=== PATIENT | female | born 1985 | race Caucasian/White ===

== ENCOUNTER 2017-01-06 17:00 | Inpatient (IN) | payer BC ==
--- NOTE | 2017-01-06 18:01 | HP ---
Past Medical History - Admission Chief Complaint: Here for labor induction History of Present Illness: 31 y/o with SIUP at 40 weeks gestation here for labor induction due to A1GDM. Pt reports +FM, no VB/LOF/CTx today. Possibly lost her mucus plug yesterday. Was transfer of care at 27 weeks gestation. GBS negative, HIV negative. HepBSag negative. Otherwise uncomplicated care. 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 Weeks Gestation by Dates: 40.0 Infectious Disease: No: AIDS, HIV, MRSA Psych: No: Bipolar, Depression Endocrine: Yes: Diabetes Mellitus (gestational - A1) - Past Surgical History Past Surgical History: Yes: None Hx Myomectomy: No Hx Transabdominal Cerclage: No - Smoking History Smoking history: Never smoked Have you smoked in the past 12 months: No - Alcohol/Substance Use History of Substance Use: reports: None - Social History Usual Living Arrangement: Yes: With Spouse ADL: Independent History of Recent Travel: No Review of Systems - Review of Systems Constitutional: reports: No Symptoms Eyes: reports: No Symptoms HENT: reports: No Symptoms Neck: reports: No Symptoms Cardiovascular: reports: No Symptoms Respiratory: reports: No Symptoms Gastrointestinal: reports: No Symptoms Genitourinary: reports: No Symptoms Breasts: reports: No Symptoms Reported Musculoskeletal: reports: No Symptoms Integumentary: reports: No Symptoms Neurological: reports: No Symptoms Endocrine: reports: No Symptoms Hematology/Lymphatic: reports: No Symptoms Psychiatric: reports: No Symptoms Physical Exam - Maternity Constitutional: Yes: Well Nourished, No Distress, Calm Eyes: Yes: Conjunctiva Clear, EOM Intact HENT: Yes: Atraumatic, Normocephalic Neck: Yes: Supple, Trachea Midline Cardiovascular: Yes: WNL Lungs: Clear to auscultation Breast(s): Yes: WNL - Abdominal Exam/OB Fundal Height: 40 Number of Fetuses: Single Presentation: Vertex Contractions: Yes Regularity: Irregular Intensity: Unaware Heart Rate (range): 135 Category: I Accelerations: Uniform Decelerations: None - Vaginal Exam/OB Vaginal Bleediing: No Dilatation (cm): 1 Effacement (%): 50 Amniotic Membrane Status: Intact Presentation: Vertex/Position Station: -3 - Physical Exam Musculoskeletal: Yes: WNL Extremities: Yes: WNL Integumentary: Yes: WNL Psychiatric: Yes: Alert, Oriented Hemorrhage Risk Assessment - Risk Factors Medium Risk Factors: Yes: None High Risk Factors: Yes: None Risk Score: 1 Risk Level: Medium Risk Problem List - Problems (1) Term Code(s): Z34.80 - ENCOUNTER FOR SUPRVSN OF NORMAL , UNSP TRIMESTER (2) Gestational diabetes mellitus (GDM) affecting first Code(s): O24.419 - GESTATIONAL DIABETES MELLITUS IN , UNSP CONTROL Assessment/Plan 31 y/o with SIUP at 40 weeks here for labor induction due to A1GDM - AFVSS - FHTS cat 1 - labor induction, cervidil placed, to remove at 6 am and start pitocin - GBS negative
[2017-01-06] MEDS ORDERED: PROMETHAZINE HCL 25 MG/1 ML VIAL IVPUSH ONE (18:02)
[2017-01-06] MEDS ORDERED: BUTORPHANOL TARTRATE 1 MG/ML VIAL IVPB ONE (18:02)
[2017-01-06 18:09] VITALS: BMI 29.2
[2017-01-06] MEDS ORDERED: ALBUTEROL SO4 6.7 GM HFA INHALER IH PRN (18:43)
[2017-01-06 19:26] LABS: BASOPHIL 0.1 % (0-2.0); EOSINOPHIL 0.6 % (0-4.5); MCH 30.2 pg (25.7-33.7); MCHC 33.7 g/dl (32.0-36.0); MEAN CELL VOLUME 89.5 fl (80-96); MEAN PLT VOLUME 9.3 fl (7.5-11.1); NEUTROPHILS 67.6 % (42.8-82.8); PLATELET COUNT 196 K/MM3 (134-434); RDW 13.9 % (11.6-15.6); WHITE BLOOD COUNT 9.6 K/mm3 (4.0-10.0)
[2017-01-06 19:47] LABS: CALCIUM 8.6 mg/dL (8.5-10.1); COCKROFT - GAULT 93.3895
[2017-01-06 19:57] LABS: INR 0.94 (0.82-1.09); PROTHROMBIN TIME (PATIENT) 10.3 SEC (9.98-11.88)
[2017-01-06 20:00] LABS: ACTIVATED PTT 28.2 SECONDS (26.9-34.4)
[2017-01-07] MEDS ORDERED: ELECTROLYTE-148 SOLN 1,000 ML IV SCH (06:00)
[2017-01-07] MEDS ORDERED: OXYTOCIN 15 UNITS/ LR 250 ML 250 ML IVPB SCH (06:30)
[2017-01-07] MEDS: OXYTOCIN 20 UNITS in 0.9% NS 1,000 ML IV SCH ×2 (07:00→09:53)
[2017-01-07] MEDS: ACETAMINOPHEN 325 MG TABLET (FP) PO PRN ×4 (07:25→19:40)
[2017-01-07] MEDS: oxyCODONE HCL 5 MG TABLET PO PRN ×3 (07:25→19:41)
--- NOTE | 2017-01-07 07:28 | PN ---
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 Infant Gender: Male Position: Left, OA - 1 Minute Total Score: 9 5 Minutes Total Score: 9 - [place] Feeding Plan Initial Plan: Exclusive throughout hospitalization Remarks - Remarks Remarks: Uncomplicated of baby boy from [facility] position anterior shoulder (right) delivered with ease along with remainder of 3VC noted, clamped and cut placenta delivered spontaneously and in tact 2nd degree laceration, right sulcal and right labial lacerations repaired with 2 -0 vicryl and chromic without difficulty mom stable baby stable and to well baby nursery EBL 350cc sponge and needle count correct after delivery
[2017-01-07] MEDS ORDERED: BENZOCAINE 28 GM HEMORRHOIDAL OINTMENT TP PRN (07:35)
[2017-01-07] MEDS ORDERED: BISACODYL 10 MG SUPP.RECT RC PRN (07:35)
[2017-01-07] MEDS ORDERED: WITCH HAZEL 50% (TUCKS) 40 PAD/JAR PAD TP PRN (07:35)
[2017-01-07] MEDS ORDERED: BENZOCAINE 20% 57 GM BOTTLE TP PRN (07:35)
[2017-01-07] MEDS ORDERED: METHYLERGONOVINE MALEATE 0.2 MG/1 ML AMP IM PRN (07:35)
[2017-01-07] MEDS ORDERED: FERROUS SO4 325 MG TABLET (FP) PO SCH (08:00)
[2017-01-07] MEDS: PRENATAL VITAMINS W/ FOLIC ACID TABLET (FP) PO SCH (12:38)
[2017-01-08] MEDS: ACETAMINOPHEN 325 MG TABLET (FP) PO PRN (02:02)
[2017-01-08] MEDS: oxyCODONE HCL 5 MG TABLET PO PRN ×4 (02:03→21:32)
--- NOTE | 2017-01-08 08:35 | PN ---
Progress Note, Physician Chief Complaint: she offers no complaints s/p section and blood transfusion condition stable History of Present Illness: day #1 s/p section - Current Medication List Current Medications: Active Medications Acetaminophen (Tylenol -) 650 mg PO Q3H PRN PRN Reason: PAIN Last Admin: 01/08/17 02:02 Dose: 650 mg Albuterol Sulfate (Ventolin Hfa Inhaler -) 2 puff IH Q4H PRN PRN Reason: ASTHMA Benzocaine (Americaine Ointment -) 1 applic TP PRN PRN PRN Reason: PAIN Benzocaine (Americaine 20% [place] -) 1 spray TP PRN PRN PRN Reason: PAIN Bisacodyl (Dulcolax Suppository -) 10 mg RC PRN PRN PRN Reason: CONSTIPATION Diphtheria/Tetanus/Acell Pertussis (Boostrix -) 0.5 ml IM .ONCE ONE Stop: 01/08/17 10:01 Ibuprofen (Motrin -) 600 mg PO Q4H PRN PRN Reason: PAIN Methylergonovine Maleate (Methergine Injection -) 0.2 mg IM Q4H PRN PRN Reason: EXCESSIVE BLEEDING (L&D) Oxycodone HCl (Roxicodone -) 5 mg PO Q6H PRN PRN Reason: PAIN Last Admin: 01/08/17 02:03 Dose: 5 mg Multivit/Folic Acid/Iron ( Vitamins (Sjr) -) 1 tab PO DAILY EMY Last Admin: 01/07/17 12:38 Dose: 1 tab Senna/Docusate Sodium (Pericolace -) 2 tablet PO HS PRN PRN Reason: CONSTIPATION Witch Jenna/Glycerin (Tucks Pads -) 1 pad TP PRN PRN PRN Reason: PAIN - Objective Vital Signs: Vital Signs Temperature 98.0 F 01/08/17 06:00 Pulse Rate 78 01/08/17 06:00 Respiratory Rate 20 01/08/17 06:00 Blood Pressure 108/71 01/08/17 06:00 O2 Sat by Pulse Oximetry (%) 97 01/07/17 08:30 Constitutional: Yes: Well Nourished, No Distress, Calm Eyes: Yes: WNL HENT: Yes: WNL Neck: Yes: WNL Cardiovascular: Yes: Regular Rate and Rhythm Respiratory: Yes: Regular Gastrointestinal: Yes: WNL, Normal Bowel Sounds ...Rectal Exam: Yes: Deferred Genitourinary: Yes: WNL Breast(s): Yes: WNL Musculoskeletal: Yes: WNL Extremities: Yes: WNL Edema: No Peripheral Pulses WNL: Yes Integumentary: Yes: WNL Wound/Incision: Yes: Dressing Dry and Intact Neurological: Yes: Alert, Oriented ...Motor Strength: WNL Psychiatric: Yes: Alert, Oriented Labs: CBC, BMP 01/06/17 19:10 01/06/17 19:10 INR, PTT INR 0.94 (0.82-1.09) 01/06/17 19:10 Assessment/Plan s/p day31 CONDITION STABLE PLAN TO ADVANCE CARE AND ACTIVITIESSITZ BATH IS ADVISED
[2017-01-08] MEDS: IBUPROFEN 600 MG TABLET (FP) PO PRN ×3 (08:40→21:31)
[2017-01-08 08:44] LABS: BASOPHIL 0.1 % (0-2.0); EOSINOPHIL 0.8 % (0-4.5); MCH 30.3 pg (25.7-33.7); MCHC 33.6 g/dl (32.0-36.0); MEAN CELL VOLUME 90.2 fl (80-96); NEUTROPHILS 68.4 % (42.8-82.8); PLATELET COUNT 150 K/MM3 (134-434); RDW 13.8 % (11.6-15.6); WHITE BLOOD COUNT 12.4 K/mm3 (4.0-10.0)
[2017-01-08] MEDS: PRENATAL VITAMINS W/ FOLIC ACID TABLET (FP) PO SCH (10:10)
[2017-01-08] MEDS ORDERED: SENNOSIDES/DOCUSATE COMBO (SENNA PLUS) TABLET (UD) PO PRN (22:00)
[2017-01-09] MEDS: IBUPROFEN 600 MG TABLET (FP) PO PRN ×2 (03:42→11:25)
[2017-01-09] MEDS: oxyCODONE HCL 5 MG TABLET PO PRN ×2 (03:43→11:26)
--- NOTE | 2017-01-09 08:41 | DS ---
Physical Exam-TUTORING ASSISTANT Vital Signs: Vital Signs Temperature 98.8 F 01/08/17 22:34 Pulse Rate 86 01/08/17 22:34 Respiratory Rate 18 01/08/17 22:34 Blood Pressure 112/74 01/08/17 22:34 O2 Sat by Pulse Oximetry (%) 97 01/07/17 08:30 Constitutional: Yes: Well Nourished Eyes: Yes: WNL HENT: Yes: WNL Neck: Yes: Supple, Trachea Midline Cardiovascular: Yes: Regular Rate and Rhythm Respiratory: Yes: Regular, CTA Bilaterally External Genitalia: Yes: Normal Vaginal Exam: Yes: Normal Cervix: Yes: Normal Uterus: Yes: Firm ....Post : Yes: Uterus firm, Moderate lochia rubra Breast(s): Yes: Other (No engorgement) Integumentary: Yes: WNL Neurological: Yes: Alert, Oriented ...Motor Strength: WNL Psychiatric: Yes: Alert, Oriented Labs: CBC, BMP 01/08/17 07:35 01/06/17 19:10 Delivery - Delivery Vaginal Delivery: No Problems Type of Anesthesia: Local Episiotomy/Laceration: 2nd degree EBL (cc): 350 Delivery, Single - Stages of Labor Date 1st Stage Initiatied: 01/07/17 Time 1st Stage Initiated: 03:00 Date 2nd Stage Initiated: 01/07/17 Time 2nd Stage Initiated: 06:15 Date of Delivery: 01/07/17 Time of Delivery: 06:44 Time Placenta Delivered: 06:49 Placenta: Yes: Spontaneous - Condition of Assistant Professor Of Business/Boom Tender Present: [place]a: AzulAndres ortega Infant Gender: Male Weight: 7 lb 12 oz Position: Left, OA Total Hours ROM (Hrs/Mins): 19mins - 1 Minute Total Score: 9 5 Minutes Total Score: 9 - Feeding Plan Initial Plan: Exclusive throughout hospitalization Discharge Summary Reason For Visit: INDUCTION OF LABOR Current Active Problems Gestational diabetes mellitus (GDM) affecting first (Acute) Term (Acute) Procedures: Principal: Normal spontaneous vaginal delivery Hospital Course: Routine care Condition: Good - Instructions Diet, Activity, Other Instructions: Regular diet No douching, no sexual intercourse x 6 weeks. Disposition: HOME - Home Medications Comprehensive Discharge Medication List: Ambulatory Orders Albuterol Sulfate Inhaler - [Ventolin Hfa Inhaler -] 2 inh PO Q4H PRN 01/06/17 Pnv95/Ferrous Fumarate/FA [ Vitamin Tablet] 1 each PO DAILY 01/06/17
[2017-01-09 09:43] VITALS: BP 108/77; PULSE 79; TEMP 98.7
[2017-01-09] MEDS ORDERED: DIPHTH,PERTUSS(ACELL),TET 0.5 ML DISP.SYRIN IM ONE (10:00)
[2017-01-09] MEDS: PRENATAL VITAMINS W/ FOLIC ACID TABLET (FP) PO SCH (10:00)
== END 2017-01-09 16:01 | disposition home or self-care (01) | DRG 775 ==
LOC: JLDR 17:00 → J3W 01-07 09:29
PROVIDERS: ADMIT Obstetrics & Gynecology; ATTEND Obstetrics & Gynecology
PROC: 10E0XZZ Delivery of Products of Conception, External Approach (ICD-10-PCS; principal; 2017-01-07)
PROC: 0KQM0ZZ Repair Perineum Muscle, Open Approach (ICD-10-PCS; 2017-01-07)
PROC: 0W8NXZZ Division of Female Perineum, External Approach (ICD-10-PCS; 2017-01-07)
DX: O70.1 Second degree perineal laceration during delivery (principal); Z37.0 Single live birth; O24.429 Gestational diabetes mellitus in childbirth, unspecified control; Z3A.40 40 weeks gestation of pregnancy
CPT/HCPCS: 36415; 59409; 80048; 85025; 85610; 85730; 86593; 86850; 86900; 86901; 90715

== ENCOUNTER 2020-12-09 07:45 | Inpatient (IN) | payer OTHER ==
[2020-12-09 09:20] LABS: INR 0.89 (0.83-1.09); PROTHROMBIN TIME (PATIENT) 10.8 SEC (9.7-13.0)
[2020-12-09 09:22] LABS: ACTIVATED PTT 28.1 SECONDS (25.2-36.5)
[2020-12-09 09:27] LABS: CALCIUM 8.9 mg/dL (8.5-10.1)
[2020-12-09 09:28] LABS: BLOOD UREA NITROGEN 9.4 mg/dL (7-18)
[2020-12-09 09:31] LABS: CREATININE 0.6 mg/dL (0.55-1.3)
[2020-12-09 09:34] LABS: HEMOGLOBIN 13.6 GM/dL (10.7-15.3); MEAN PLT VOLUME 8.7 fl (7.5-11.1); PLATELET COUNT 218 K/MM3 (134-434); WHITE BLOOD COUNT 9.8 K/mm3 (4.0-10.0)
[2020-12-09 09:45] LABS: BASO % 0.1 % (0-2.0); EOS % 0.7 % (0-4.5); HEMATOCRIT 39.2 % (32.4-45.2); LYMPH % 24.4 % (8-40); MCH 30.6 pg (25.7-33.7); MCHC 34.6 g/dl (32.0-36.0); MEAN CELL VOLUME 88.4 fl (80-96); NEUT % 66.8 % (42.8-82.8); RBC 4.44 M/mm3 (3.60-5.2); RDW 13.9 % (11.6-15.6)
[2020-12-09 09:58] VITALS: BMI 27.8
[2020-12-09] MEDS ORDERED: PROMETHAZINE HCL 25 MG/1 ML VIAL IVPUSH ONE (10:38)
[2020-12-09] MEDS ORDERED: BUTORPHANOL TARTRATE 2 MG/ML VIAL IVPB PRN (10:38)
[2020-12-09] MEDS ORDERED: ELECTROLYTE-148 SOLN 1,000 ML IV SCH (10:45)
[2020-12-09] MEDS ORDERED: DINOPROSTONE 10 MG VAGINAL SUPPOSITORY VG ONE (11:03)
[2020-12-09] MEDS ORDERED: PROMETHAZINE HCL 25 MG/1 ML VIAL ONE (14:04)
[2020-12-09] MEDS ORDERED: BUTORPHANOL TARTRATE 2 MG/ML VIAL ONE (14:04)
[2020-12-09] MEDS ORDERED: OXYTOCIN 20 UNITS in 0.9% NS 20 UNIT/1,000 ML INFUS.BAG IV ONE (15:40)
[2020-12-09] MEDS ORDERED: LIDOCAINE HCL 1% PRESERVATIVE FREE - 30ML VIAL ONE (15:40)
[2020-12-09] MEDS ORDERED: BENZOCAINE 28 GM HEMORRHOIDAL OINTMENT PR PRN (16:17)
[2020-12-09] MEDS ORDERED: BENZOCAINE 20% 57 GM BOTTLE TP PRN (16:17)
[2020-12-09] MEDS ORDERED: BISACODYL 10 MG SUPP.RECT PR PRN (16:17)
[2020-12-09] MEDS ORDERED: METHYLERGONOVINE MALEATE 0.2 MG/1 ML AMP IM PRN (16:17)
[2020-12-09] MEDS ORDERED: WITCH HAZEL 50% (TUCKS) 40 PAD/JAR PAD TP PRN (16:17)
[2020-12-09] MEDS ORDERED: OXYTOCIN 20 UNITS in 0.9% NS 20 UNIT/1,000 ML INFUS.BAG IV SCH (17:00)
[2020-12-09] MEDS: IBUPROFEN 600 MG TABLET (FP) PO PRN (17:00)
[2020-12-09] MEDS ORDERED: IBUPROFEN 600 MG TABLET (FP) PO ONE (17:08)
[2020-12-09 17:26] LABS: CORD BASE EXCESS -3.9 mmol/L (0-2); CORD HCO3 22.9 mmHg (20-29); CORD pH 7.296 (7.14-7.44)
[2020-12-09 17:28] LABS: CORD HCO3 21.7 mmHg (20-29); CORD PCO2 41.8 mmHg (30-78); CORD pH 7.333 (7.14-7.44)
[2020-12-09] MEDS: ACETAMINOPHEN 325 MG TABLET (FP) PO PRN (20:11)
[2020-12-10] MEDS: IBUPROFEN 600 MG TABLET (FP) PO PRN ×4 (03:11→18:26)
[2020-12-10] MEDS: ACETAMINOPHEN 325 MG TABLET (FP) PO PRN ×4 (03:12→18:26)
[2020-12-10 08:01] LABS: BASO % 0.1 % (0-2.0); EOS % 0.6 % (0-4.5); HEMATOCRIT 38.3 % (32.4-45.2); HEMOGLOBIN 12.7 GM/dL (10.7-15.3); LYMPH % 15.7 % (8-40); MCH 29.9 pg (25.7-33.7); MCHC 33.2 g/dl (32.0-36.0); MEAN PLT VOLUME 8.6 fl (7.5-11.1); MONO % 5.6 % (3.8-10.2); PLATELET COUNT 167 K/MM3 (134-434); RBC 4.25 M/mm3 (3.60-5.2); RDW 13.8 % (11.6-15.6); WHITE BLOOD COUNT 13.2 K/mm3 (4.0-10.0)
[2020-12-11] MEDS: ACETAMINOPHEN 325 MG TABLET (FP) PO PRN ×2 (03:07→10:10)
[2020-12-11] MEDS: IBUPROFEN 600 MG TABLET (FP) PO PRN ×2 (03:08→10:09)
[2020-12-11 09:21] VITALS: BP 116/77; PULSE 60; TEMP 97.8
== END 2020-12-11 13:40 | disposition home or self-care (01) | DRG 807 ==
LOC: JLDR 07:45 → J3W 19:55
PROVIDERS: ADMIT Obstetrics & Gynecology; ATTEND Obstetrics & Gynecology
PROC: 10E0XZZ Delivery of Products of Conception, External Approach (ICD-10-PCS; principal; 2020-12-09)
PROC: 0W8NXZZ Division of Female Perineum, External Approach (ICD-10-PCS; 2020-12-09)
DX: O24.420 Gestational diabetes mellitus in childbirth, diet controlled (principal); Z37.0 Single live birth; Z3A.39 39 weeks gestation of pregnancy
CPT/HCPCS: 36415; 36600; 59409; 80048; 82803; 85025; 85610; 85730; 86780; 86850; 86900; 86901; 87340